=== PATIENT | male | born 1995 | race Caucasian/White ===

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

== ENCOUNTER 2017-01-17 11:50 | Emergency (ER) | payer OTHER ==
[2017-01-17 12:02] VITALS: BP 123/65
--- NOTE | 2017-01-17 12:11 | ED Physician Documentation ---
General Adult - HISTORIAN Historian: patient - HPI Stated Complaint: Splinters Chief Complaint: General Adult Onset: days ago (3) Timing: still present Severity: moderate Further Comments: yes (states he was trimming the yard and believes he got into a thorn gunter where he now has several "splinters" and his hand is swelling and he notes pain in right hand with movement) Last known Well Code/Unknown Code: Unknown - ROS CONST: denies: fever EYES/ENT: none CVS/RESP: none GI/: none MS/SKIN/LYMPH: other (areas of skin concern from the thorns on the yard work ) - PAST HX Past History: none Other History: none Surgeries/Procedures: none Immunizations: referred to PCP Allergies/Adverse Reactions: Allergies Allergy/AdvReac Type Severity Reaction Status Date / Time Sulfa (Sulfonamide Allergy Verified 01/17/17 12:02 Antibiotics) Home Medications: Ambulatory Orders Medication Instructions Recorded Cephalexin [Keflex] 500 mg PO BID #20 capsule 01/17/17 - SOCIAL HX Smoking History: cigarettes Alcohol Use: none Drug Use: none - FAMILY HX Family History: No - VITAL SIGNS Vital Signs: Vital Signs Temp Pulse Resp BP Pulse Ox 98.9 F 71 19 123/65 99 01/17/17 11:59 01/17/17 11:59 01/17/17 11:59 01/17/17 11:59 01/17/17 11:59 - REVIEWED ASSESSMENTS Nursing Assessment Reviewed: Yes Vitals Reviewed: Yes Procedures Site: left hand (x2) and right hand Blade Size: 18 gauge needle used to assist removal of splinters/thorns I & D Procedure: Chlorhexidine Progress: three splinters/thorns removed tolerated well each area with cleaned with alcohol prep and 2% lidocaine used approx 1 cc in each area General Adult Physical Exam - PHYSICAL EXAM GENERAL APPEARANCE: no distress EENT: eye inspection normal RESPIRATORY: no resp distress, chest non-tender, breath sounds normal CVS: reg rate & rhythm, heart sounds normal, equal pulses, no murmur ABDOMEN: soft, no organomegaly SKIN: other (several superficial scratches on his wrists and three areas of possible thorns or splinters left hand (thumb) and left hand third finger right hand palm redness on thumb and palm noted with mild pain with palpation ) EXTREMITIES: non-tender, normal range of motion, no evidence of injury, no edema NEURO: oriented X3, CN's nml as tested, motor nml, sensation nml Discharge Clincal Impression: Skin abnormality Prescriptions: Cephalexin [Keflex] 500 mg PO BID #20 capsule Referrals: Primary Doctor,No [Primary Care Provider] - 2 Days Condition: Stable Disposition: 01 HOME, SELF-CARE Decision to Admit: NO Date of Decison to Admit: 01/17/17 Decision Time: 12:57
[2017-01-17] MEDS: Lidocaine 2% 20ml Vial IP ONE (12:15)
== END 2017-01-17 13:10 | disposition home or self-care (01) ==
LOC: ED 11:50
DX: S69.81XA Other specified injuries of right wrist, hand and finger(s), initial encounter (principal); W45.8XXA Other foreign body or object entering through skin, initial encounter; Y92.9 Unspecified place or not applicable; Y93.H2 Activity, gardening and landscaping; Y99.9 Unspecified external cause status
CPT/HCPCS: 10120; 99283

== ENCOUNTER 2017-03-08 19:00 | Emergency (ER) | payer SELFPAY ==
[2017-03-08 19:13] VITALS: BP 116/61
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
--- NOTE | 2017-03-08 20:25 | Diagnostic Imaging Report ---
GABO ROMAN [facility] [address] [address] [place], [place]. [address] Report Submission Date: Mar 08, 2017 8:03:49 PM RADIO JOURNALIST Patient Study Name: ROBERT FERNANDEZ Date: Mar 08, 2017 7:48:52 PM RADIO JOURNALIST Modality Type: CR Gender: M Description: FACIAL BONES : 89 Institution: [facility] Physician: GABO ROMAN Facial bones 3 views History: PT STATES PAIN IN NOSE AND CONGESTED AFTER INJURY TO NOSE LAST WEEK Findings: The facial bones are unremarkable without fracture. A 4 x 4 mm moderately radiopaque foreign body is observed on left side of the face and is visible only on the PA view. Impression: 1. No evidence of fracture. 2. 4 mm left facial foreign body. Electronically signed on Mar 08, 2017 8:03:49 PM RADIO JOURNALIST by: Kody PRICE
== END 2017-03-08 20:40 | disposition left against medical advice (07) ==
LOC: ED 19:00
DX: J01.10 Acute frontal sinusitis, unspecified (principal)
CPT/HCPCS: 70150; 99282

== ENCOUNTER 2018-11-06 20:10 | Emergency (ER) | payer OTHER ==
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
[2018-11-06 21:00] VITALS: BP 116/61
[2018-11-07 07:32] LABS: eGFR (Non-African) > 60
[2018-11-07 07:33] LABS: BASOPHILS % 0.7 % (0.0-1.5); NEUTROPHILS # 6.7 # k/uL (1.4-7.7)
[2018-11-07] MEDS ORDERED: 0.9 % SODIUM CHLORIDE 0 ML IV ONE (16:15)
[2018-11-07] MEDS ORDERED: MORPHINE SULFATE 4 MG/ML VIAL ONE (16:15)
== END 2018-11-06 20:59 | disposition home or self-care (01) ==
LOC: ED 20:10
DX: S61.431A Puncture wound without foreign body of right hand, initial encounter (principal); W46.1XXA Contact with contaminated hypodermic needle, initial encounter; Y99.0 Civilian activity done for income or pay
CPT/HCPCS: 80053; 85025; 86703; 86706; 86803; 99282; 99283

== ENCOUNTER 2018-12-05 17:32 | Emergency (ER) | payer SELFPAY ==
[2018-12-05] MEDS ORDERED: KETOROLAC TROMETHAMINE 30 MG/1ML VIAL IV ONE (17:49)
[2018-12-05] MEDS ORDERED: 0.9 % SODIUM CHLORIDE 1,000 ML IV ONE (17:49)
[2018-12-05] MEDS ORDERED: PENICILLIN G BENZATHINE IM ONE (17:50)
--- NOTE | 2018-12-05 18:08 | ED Physician Documentation ---
Sore Throat/Dental Pain - HISTORIAN Historian: patient - HPI Stated Complaint: sore throat Chief Complaint: Sore Throat Additional Information: Patient presents with sore throat, fever, chills, and overall discomfort- sore throat started this morning. He states it hurts to swallow; he cant swallow pills. Patient is hot to the touch, mucous membranes dry. Onset: hours Context: Possible Infection Associated Symptoms: fever, chills, moderate, unable to swallow (pain with swallowing), swollen glands Worsened By: nothing - ROS CONST: no problems CVS/RESP: none GI/: denies: nausea, vomiting MS/SKIN/LYMPH: muscle aches NEURO/PSYCH: headache - PAST HX Past History: none Other History: none Immunizations: UTD Allergies/Adverse Reactions: Allergies Allergy/AdvReac Type Severity Reaction Status Date / Time Sulfa (Sulfonamide Allergy Unknown Verified 12/05/18 17:53 Antibiotics) Home Medications: Ambulatory Orders Medication Instructions Recorded NK 03/08/17 - SOCIAL HX Smoking History: non-smoker Alcohol Use: none Drug Use: none - FAMILY HX Family History: Yes - VITAL SIGNS Vital Signs: Vital Signs Temp Pulse Resp BP Pulse Ox 101.2 F H 100 H 18 116/61 98 12/05/18 19:28 12/05/18 19:28 12/05/18 19:28 12/05/18 19:28 12/05/18 19:28 - REVIEWED ASSESSMENTS Nursing Assessment Reviewed: Yes Vitals Reviewed: Yes ED Results Lab/Radiology - Orders Orders: ED Orders Category Date Time Status Place IV Lock 1T Care 12/05/18 17:49 Active Rapid Strep [GRP A STREP SCREEN] Stat Lab 12/05/18 Ordered 0.9 % Sodium Chloride [Normal Saline] 1,000 ml Med 12/05/18 17:49 Discontinued IV Q1H Ketorolac Tromethamine [Toradol] Med 12/05/18 17:49 Discontinued 30 mg IV NOW ONE Penicillin G Benzathine [Bicillin l-A] Med 12/05/18 17:50 Discontinued 1,200,000 units IM NOW ONE Sore throat Physical Exam - EXAM General Appearance: alert, mild distress Head/Neck: head nml inspection, trachea midline, cervical lymphadenopathy, anterior Eyes: eyes nml inspection, PERRL Mouth/Throat: no drooling, no air way problems, pharyngeal erythema, tonsillar exudate, tonsillar swelling, dry membranes Ear/Nose: nml inspection Respiratory: breath sounds nml CVS: heart sounds nml, tachycardia Abdomen: soft, normal bowel sounds Extremities: non-tender Skin: pallor, other (hot to the touch) Neuro/Psych: oriented x3 Discharge Clincal Impression: Acute pharyngitis Referrals: Primary Doctor,No [Primary Care Provider] - 2 Days Additional Instructions: Antibiotic was given in the ER Penicillin IM Increase water intake Alternate Ibuprofen and Tylenol (may use liquid) as needed for fever/discomfort Use chloraseptic spray or lozenges Warm salt water gargles 4 times a day Change out toothbrush in 48 hours Follow up with PCP as needed Condition: Stable Disposition: 01 HOME, SELF-CARE Decision to Admit: NO Decision Time: 21:40
[2018-12-05 19:29] VITALS: BP 116/61
== END 2018-12-05 19:00 | disposition home or self-care (01) ==
LOC: ED 17:32
DX: J02.9 Acute pharyngitis, unspecified (principal)
CPT/HCPCS: 87880; 96361; 96372; 96374; 99282; 99284; J0561; J1885; J7030; 99283; S1016